=== PATIENT | female | born 1970 | race Caucasian/White ===

== ENCOUNTER 2022-01-12 14:48 | Emergency (ER) | payer BC ==
[~2022-01-12] VITALS: Ht 170.2 cm; Wt 56.7 kg
[2022-01-12] MEDS ORDERED: PROCHLORPERAZIN10 MG PO (19:09)
== END 2022-01-12 19:14 | disposition home or self-care (01) ==
LOC: ED 14:48
DX: U07.1 COVID-19 (principal)
CPT/HCPCS: 36415; 80053; 81001; 83735; 85025; J0780; J1200; J7030; J7040; J7121